=== PATIENT | female | born 1985 | race Caucasian/White ===

== ENCOUNTER 2017-09-21 11:14 | Inpatient (IN) | payer OTHER ==
[2017-09-21 11:47] VITALS: BMI 22.3
--- NOTE | 2017-09-21 15:38 | HP ---
COWS - Scale Resting Pulse: 1= [place] 81-100 Sweatin=Flushed/Facial Moisture Restless Observation: 1= Difficult to Sit Still Pupil Size: 0= Normal to Room Light Bone or Joint Aches: 2= Severe Diffuse Aches Runny Nose/ Eye Tearin= Nasal Congestion GI Upset > 30mins: 3= Vomiting/Diarrhea Tremor Observation: 1= Tremor [place], Not Seen Yawning Observation: 0= None Anxiety or Irritability: 4=Extreme Anxiety Goose Flesh Skin: 3=Piloerection COWS Score: 18 Admission ROS S - HPI Chief Complaint: "I need to get clean and straight. I was on Methadone for a while and then I stopped and I slipped up." Patient is here to Detox from Heroin. Allergies/Adverse Reactions: Allergies Allergy/AdvReac Type Severity Reaction Status Date / Time No Known Allergies Allergy Verified 09/21/17 12:33 History of Present Illness: Patient is a 31 YO female here to Detox from Heroin. This is patient's first Detox admission at [facility]. Patient had a Detox admission at [facility] in 2017. Patient was in [facility] ([facility], 2010 - 2015). Then patient continued to take Methadone (prescribed) as an analgesic after that. Patient stopped taking Methadone in 06/2017, then began to use Heroin in 08/2017. Exam Limitations: No Limitations - Ebola screening Have you traveled outside of the country in the last 21 days: No (N) Have you had contact with anyone from an Ebola affected area: No Have you been sick,other than usual withdrawal symptoms: No Do you have a fever: No - Review of Systems Constitutional: Chills, Diaphoresis, Fever, Loss of Appetite, Malaise, Night Sweats, Changes in sleep, Unintentional Wgt. Loss (Lost approx. 15 lbs. over last 1 month.) EENT: reports: Blurred Vision, Nose Congestion, Sinus Pressure Respiratory: reports: Cough Cardiac: reports: Palpitations, Chest Tightness (Patient reports this to be a chronic condition that has occurred intermittently for most of her life.) GI: reports: Diarrhea, Nausea, Poor Appetite, Vomiting : reports: No Symptoms Reported Musculoskeletal: reports: Back Pain, Joint Pain, Muscle Pain, Neck Pain, Joint Stiffness Integumentary: reports: No Symptoms Reported Neuro: reports: Headache, Numbness (Bilateral Feet and bilateral Hands.), Tingling (Bilateral Feet and bilateral Hands.), Tremors Endocrine: reports: No Symptoms Reported Hematology: reports: No Symptoms Reported Psychiatric: reports: Judgement Intact, Mood/Affect Appropiate, Orientated x3, Agitated, Anxious, Depressed (On meds.), other (Anxiety.) Other Systems: Reviewed and Negative Patient History - Patient Medical History Hx Anemia: No Hx Asthma: No Hx Chronic Obstructive Pulmonary Disease (COPD): No Hx Cancer: No Hx Cardiac Disorders: No Hx Congestive Heart Failure: No Hx Hypertension: No Hx Hypercholesterolemia: No Hx Pacemaker: No HX Cerebrovascular Accident: No Hx Seizures: No Hx Dementia: No Hx Diabetes: No Hx Gastrointestinal Disorders: No Hx Liver Disease: No Hx Genitourinary Disorders: No Hx Sexually Transmitted Disorders: Yes (HPV) Hx Renal Disease (ESRD): No Hx Thyroid Disease: No Hx Human Immunodeficiency Virus (HIV): No (Last Tested: 08/2017: NEGATIVE) Hx Hepatitis C: No (Negative History.) Hx Depression: Yes (and Anxiety; On meds.) Hx Suicide Attempt: No (PATIENT DENIES CURRENT SI / HI.) Hx Bipolar Disorder: No Hx Schizophrenia: No Other Medical History: Rheumatoid Arthritis, Diagnosed 2013. PTSD. - Patient Surgical History Past Surgical History: Yes Hx Neurologic Surgery: No Hx Cataract Extraction: No Hx Cardiac Surgery: No Hx Lung Surgery: No Hx Breast Surgery: No Hx Breast Biopsy: No Hx Abdominal Surgery: No Hx Appendectomy: No Hx Cholecystectomy: No Hx Genitourinary Surgery: No Hx Section: No Hx Orthopedic Surgery: Yes (rt foot implant (brace), 2016.) Hx Hysterectomy: No Other Surgical History: DENIES. Anesthesia Reaction: Yes (Had "Jaw lock" when used during Implant of IUD (2016).) - PPD History Previous Implant?: Yes Documented Results: Negative w/o proof Implanted On Prior R Admission?: No PPD to be Administered?: Yes - Reproductive History Patient is a Female of Child Bearing Age (11 -55 yrs old): Yes Last Menstrual Period: 09/21/17 Patient : No - Smoking Cessation Smoking history: Current every day smoker Have you smoked in the past 12 months: Yes Aproximately how many cigarettes per day: 20 Cigars Per Day: 0 Hx Chewing Tobacco Use: No Initiated information on smoking cessation: Yes 'Breaking Loose' booklet given: 09/21/17 (GIVEN TO PATIENT.) - Substance & Tx. History Hx Alcohol Use: Yes (In past, not currently.) Substance Use Type: Heroin Hx Substance Use Treatment: Yes (Detox admission at [facility] (08/2017).) - Substances Abused Heroin Route: Injection Frequency: Daily Amount used: 8 bags Age of first use: 23 Date of Last Use: 09/21/17 Family Disease History - Family Disease History Family Disease History: Other: Father (OCD, Schizophrenia.), Mother (Benign Head Tumor, removed.) Admission Physical Exam [facility] - Vital Signs Vital Signs: Vital Signs - 24 hr 09/21/17 11:45 Temperature 97.7 F Pulse Rate 98 H Respiratory 18 Rate Blood Pressure 150/89 - Physical General Appearance: Yes: Nourished, Appropriately Dressed, Mild Distress, Tremorous, Sweating, Anxious HEENTM: Yes: Hearing grossly Normal, Normocephalic, Normal Voice, [place], Pharynx Normal Respiratory: Yes: Chest Non-Tender, Lungs Clear, No Respiratory Distress, No Accessory Muscle Use Neck: Yes: No masses,lesions,Nodules, Supple, Trachea in good position Breast: Yes: Breast Exam Deferred Cardiology: Yes: Regular Rhythm, Regular Rate, S1, S2 Abdominal: Yes: Normal Bowel Sounds, Non Tender, Flat, Soft Genitourinary: Yes: Within Normal Limits Back: Yes: Decreased Range of Motion Musculoskeletal: Yes: Gait Steady, Back pain, Joint Stiffness, Muscle Pain Extremities: Yes: Normal Capillary Refill, Tremors Neurological: Yes: Fully Oriented, Alert, Normal Mood/Affect, Normal Response Integumentary: Yes: Normal Color, Dry, Warm, Track [place] (Noted on Bilarteral Forearms. Mild swelling noted at site near Left Cubital crease. No swelling, erythema, or unusual discharge noted at any other affected sites.) Lymphatic: Yes: Within Normal Limits - Diagnostic (1) Opioid dependence with withdrawal Current Visit: Yes Status: Acute (2) Nicotine dependence Current Visit: Yes Status: Chronic Qualifiers: Nicotine product type: cigarettes Substance use status: uncomplicated Qualified Code(s): F17.210 - Nicotine dependence, cigarettes, uncomplicated (3) Rheumatoid arthritis Current Visit: Yes Status: Chronic Qualifiers: Rheumatoid arthritis location: multiple sites Rheumatoid factor presence: unspecified presence Qualified Code(s): M06.9 - Rheumatoid arthritis, unspecified (4) Depression with anxiety Current Visit: Yes Status: Chronic (5) Status post right foot surgery Current Visit: Yes Status: Chronic (6) History of posttraumatic stress disorder (PTSD) Current Visit: Yes Status: Suspected Cleared for Admission [facility] - Detox or Rehab [facility] Level of Care: Medically Managed Detox Regimen/Protocol: Methadone [facility] Breath Alcohol Content Breath Alcohol Content: 0 Urine Pregancy Test - Result Urine Test Results: Negative- NO Line Present Urine Drug Screen - Results Drug Screen Negative: No Urine Drug Screen Results: OPI-Opiates, MET-Methamphetamine, MDMA-Ecstasy, MTD- Methadone, TCA-Tricyclic Antidepress, OXY-Oxycodone
[2017-09-21] MEDS ORDERED: MAG HYDROX/AL HYDROX/SIMETH 30 ML UNIT-DOSE CUP PO PRN (16:22)
[2017-09-21] MEDS ORDERED: MAGNESIUM HYDROX 2400MG/30ML ORAL SUSPENSION 30 ML CUP PO PRN (16:22)
[2017-09-21] MEDS ORDERED: MAGNESIUM CITRATE 300 ML BOTTLE PO PRN (16:22)
[2017-09-21] MEDS ORDERED: P-EPHED 60MG/TRIPROLIDI 2.5MG TABLET PO PRN (16:22)
[2017-09-21] MEDS ORDERED: LOPERAMIDE HCL 2 MG CAPSULE PO PRN (16:22)
[2017-09-21] MEDS ORDERED: guaiFENesin/D-METHORPHAN HB 10 ML UNIT-DOSE CUPS PO PRN (16:22)
[2017-09-21] MEDS ORDERED: MENTHOL/PHENOL 1 EACH UD MM PRN (16:22)
[2017-09-21] MEDS ORDERED: TRIMETHOBENZAMIDE HCL 200MG/2ML INJ IM PRN (16:32)
[2017-09-21] MEDS ORDERED: METHADONE HCL 10 MG TABLET (FOR DETOX USE ONLY) PO ONE ×2 (18:15→23:00)
[2017-09-21] MEDS: SULFAMETHOXAZOLE/TRIMETHOPRIM 800MG/160MG D.S. TABLET PO SCH (18:21)
[2017-09-21] MEDS: NICOTINE 21 MG/24 HOURS TOPICAL PATCH TD SCH (18:22)
[2017-09-21] MEDS: diazePAM 5 MG TABLET PO PRN ×2 (18:22→22:16)
[2017-09-21] MEDS: THIAMINE HCL 100 MG TABLET (FP) PO SCH (22:15)
[2017-09-21] MEDS: BACITRACIN 0.9 GM PACKET TP SCH (22:15)
[2017-09-21 22:24] LABS: URINE APPEARANCE TURBID; URINE BILIRUBIN NEGATIVE (NEGATIVE); URINE BLOOD NEGATIVE (NEGATIVE); URINE COLOR YELLOW; URINE GLUCOSE (UA) NEGATIVE (NEGATIVE); URINE KETONE TRACE (NEGATIVE); URINE NITRITE NEGATIVE (NEGATIVE); URINE UROBILINOGEN NEGATIVE mg/dL (0.2-1.0)
[2017-09-21 22:25] LABS: URINE LEUK ESTERASE 2+ (NEGATIVE); URINE PROTEIN 2+ (NEGATIVE)
[2017-09-21 22:53] LABS: EPI CELLS MANY /HPF (FEW); URINE MUCUS MANY
[2017-09-22] MEDS ORDERED: METHADONE HCL 10 MG TABLET (FOR DETOX USE ONLY) PO ONE (10:00)
[2017-09-22 10:30] LABS: HEMATOCRIT 43.6 % (32.4-45.2); HEMOGLOBIN 14.4 GM/dL (10.7-15.3); MCH 30.6 pg (25.7-33.7); MEAN CELL VOLUME 92.6 fl (80-96); MEAN PLT VOLUME 8.7 fl (7.5-11.1); PLATELET COUNT 409 K/MM3 (134-434); RBC 4.71 M/mm3 (3.60-5.2); RDW 15.8 % (11.6-15.6); WHITE BLOOD COUNT 10.9 K/mm3 (4.0-10.0)
[2017-09-22] MEDS: PRENATAL VITAMINS W/ FOLIC ACID TABLET (FP) PO SCH (10:30)
[2017-09-22] MEDS: SULFAMETHOXAZOLE/TRIMETHOPRIM 800MG/160MG D.S. TABLET PO SCH ×2 (10:30→17:42)
[2017-09-22] MEDS: BACITRACIN 0.9 GM PACKET TP SCH ×2 (10:30→22:20)
[2017-09-22] MEDS: NICOTINE 21 MG/24 HOURS TOPICAL PATCH TD SCH (10:30)
[2017-09-22] MEDS: diazePAM 5 MG TABLET PO PRN ×4 (10:31→22:47)
[2017-09-22 10:37] LABS: CHLORIDE 104 mmol/L (98-107); POTASSIUM 3.9 mmol/L (3.5-5.1); SODIUM 137 mmol/L (136-145)
[2017-09-22 10:43] LABS: ALK PHOS 78 U/L (45-117); ANION GAP 4 (8-16); BILIRUBIN,TOTAL 0.4 mg/dL (0.2-1.0); BLOOD UREA NITROGEN 8 mg/dL (7-18); CO2 29 mmol/L (21-32); CREATININE 0.6 mg/dL (0.55-1.02); GLUCOSE,RANDOM 83 mg/dL (74-106); SGOT/AST 10 U/L (15-37); SGPT/ALT 22 U/L (12-78); TOT PROT 8.1 g/dl (6.4-8.2)
[2017-09-22] MEDS: IBUPROFEN 600 MG TABLET (FP) PO PRN ×2 (12:33→21:33)
[2017-09-22] MEDS: CYCLOBENZAPRINE HCL 5 MG TABLET PO PRN ×2 (12:34→21:33)
--- NOTE | 2017-09-22 15:44 | PN ---
S COWS - Scale Resting Pulse: 1= [place] 81-100 Sweatin=Flushed/Facial Moisture Restless Observation: 3= Extraneous Movement Pupil Size: 1= Pupils >than Normal Bone or Joint Aches: 2= Severe Diffuse Aches Runny Nose/ Eye Tearin= Nasal Congestion GI Upset > 30mins: 1= Stomach Cramp Tremor Observation of Outstretched Hands: 2= Slight Tremor Visible Yawning Observation: 0= None Anxiety or Irritability: 2=Irritable/Anxious Goose Flesh Skin: 3=Piloerection COWS Score: 18 BHS Progress Note (SOAP) Subjective: goosebumps nausea diarrhea Objective: 09/22/17 15:41 ambulating on unit anxious Vital Signs Temperature 98.1 F 09/22/17 14:55 Pulse Rate 94 H 09/22/17 14:55 Respiratory Rate 20 09/22/17 14:55 Blood Pressure 121/80 09/22/17 14:55 O2 Sat by Pulse Oximetry (%) Laboratory Last Values WBC 10.9 K/mm3 (4.0-10.0) H 09/22/17 06:10 RBC 4.71 M/mm3 (3.60-5.2) 09/22/17 06:10 Hgb 14.4 GM/dL (10.7-15.3) 09/22/17 06:10 Hct 43.6 % (32.4-45.2) 09/22/17 06:10 MCV 92.6 fl (80-96) 09/22/17 06:10 MCH 30.6 pg (25.7-33.7) 09/22/17 06:10 MCHC 33.0 g/dl (32.0-36.0) 09/22/17 06:10 RDW 15.8 % (11.6-15.6) H 09/22/17 06:10 Plt Count 409 K/MM3 (134-434) 09/22/17 06:10 MPV 8.7 fl (7.5-11.1) 09/22/17 06:10 Sodium 137 mmol/L (136-145) 09/22/17 06:10 Potassium 3.9 mmol/L (3.5-5.1) 09/22/17 06:10 Chloride 104 mmol/L (98-107) 09/22/17 06:10 Carbon Dioxide 29 mmol/L (21-32) 09/22/17 06:10 Anion Gap 4 (8-16) L 09/22/17 06:10 BUN 8 mg/dL (7-18) 09/22/17 06:10 Creatinine 0.6 mg/dL (0.55-1.02) 09/22/17 06:10 Creat Clearance w eGFR > 60 (>60) 09/22/17 06:10 Random Glucose 83 mg/dL (74-106) 09/22/17 06:10 Calcium 9.0 mg/dL (8.5-10.1) 09/22/17 06:10 Total Bilirubin 0.4 mg/dL (0.2-1.0) 09/22/17 06:10 AST 10 U/L (15-37) L 09/22/17 06:10 ALT 22 U/L (12-78) 09/22/17 06:10 Alkaline Phosphatase 78 U/L (45-117) 09/22/17 06:10 Total Protein 8.1 g/dl (6.4-8.2) 09/22/17 06:10 Albumin 4.0 g/dl (3.4-5.0) 09/22/17 06:10 Urine Color Yellow 09/21/17 20:12 Urine Appearance Turbid 09/21/17 20:12 Urine pH 5.0 (5.0-8.0) 09/21/17 20:12 Ur Specific [place] 1.030 (1.001-1.035) 09/21/17 20:12 Urine Protein 2+ (NEGATIVE) H 09/21/17 20:12 Urine Glucose (UA) Negative (NEGATIVE) 09/21/17 20:12 Urine Ketones Trace (NEGATIVE) H 09/21/17 20:12 Urine Blood Negative (NEGATIVE) 09/21/17 20:12 Urine Nitrite Negative (NEGATIVE) 09/21/17 20:12 Urine Bilirubin Negative (NEGATIVE) 09/21/17 20:12 Urine Urobilinogen Negative mg/dL (0.2-1.0) 09/21/17 20:12 Ur Leukocyte Esterase 2+ (NEGATIVE) H 09/21/17 20:12 Urine WBC (Auto) 62 /hpf (3-5) 09/21/17 20:12 Urine RBC (Auto) None /hpf (0-3) 09/21/17 20:12 Ur Epithelial Cells Many /HPF (FEW) 09/21/17 20:12 Urine Mucus Many 09/21/17 20:12 RPR Titer Nonreactive (NONREACTIVE) 09/22/17 06:10 labs noted Assessment: 09/22/17 15:43 withdrawal sx Plan: continue detox increase hydration
--- NOTE | 2017-09-22 15:58 | EKG ---
Test Reason : Blood Pressure : / mmHG Vent. Rate : 066 BPM Atrial Rate : 066 BPM P-R Int : 146 ms QRS Dur : 072 ms QT Int : 402 ms P-R-T Axes : 049 057 041 degrees QTc Int : 421 ms NORMAL SINUS RHYTHM NORMAL ECG WHEN COMPARED WITH ECG OF 21-SEP-2017 17:26, T WAVE INVERSION NO LONGER EVIDENT IN ANTERIOR LEADS Confirmed by HENRY DAVID, ROYER ([id number]) on 09/22/2017 3:58:20 PM Referred By: Confirmed By:ROYER FIGUEROA MD
--- NOTE | 2017-09-22 15:59 | EKG ---
Test Reason : Blood Pressure : / mmHG Vent. Rate : 083 BPM Atrial Rate : 083 BPM P-R Int : 148 ms QRS Dur : 080 ms QT Int : 374 ms P-R-T Axes : 052 067 039 degrees QTc Int : 439 ms NORMAL SINUS RHYTHM POSSIBLE RIGHT VENTRICULAR HYPERTROPHY NONSPECIFIC T WAVE ABNORMALITY ABNORMAL ECG NO PREVIOUS ECGS AVAILABLE Confirmed by ROYER FIGUEROA MD ([id number]) on 09/22/2017 3:58:55 PM Referred By: Confirmed By:ROYER FIGUEROA MD
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
[2017-09-22] MEDS: ZOLPIDEM TARTRATE 5 MG TABLET PO PRN (22:20)
[2017-09-22] MEDS: THIAMINE HCL 100 MG TABLET (FP) PO SCH (22:21)
[2017-09-22] MEDS: NICOTINE POLACRILEX 2 MG GUM BC PRN (22:22)
[2017-09-23] MEDS: diazePAM 5 MG TABLET PO PRN ×4 (02:42→22:21)
[2017-09-23] MEDS ORDERED: METHADONE HCL 5 MG TABLET (FOR DETOX USE ONLY) PO ONE (10:00)
[2017-09-23] MEDS: SULFAMETHOXAZOLE/TRIMETHOPRIM 800MG/160MG D.S. TABLET PO SCH ×2 (10:21→17:18)
[2017-09-23] MEDS: SERTRALINE HCL 50 MG TABLET (FP) PO SCH (10:21)
[2017-09-23] MEDS: PRENATAL VITAMINS W/ FOLIC ACID TABLET (FP) PO SCH (10:21)
[2017-09-23] MEDS: BACITRACIN 0.9 GM PACKET TP SCH ×2 (10:22→22:19)
[2017-09-23] MEDS: NICOTINE 21 MG/24 HOURS TOPICAL PATCH TD SCH (10:22)
[2017-09-23] MEDS: IBUPROFEN 600 MG TABLET (FP) PO PRN ×2 (12:06→22:20)
[2017-09-23] MEDS: CYCLOBENZAPRINE HCL 5 MG TABLET PO PRN ×2 (12:07→23:15)
[2017-09-23] MEDS: NICOTINE POLACRILEX 2 MG GUM BC PRN ×3 (12:55→22:21)
--- NOTE | 2017-09-23 15:13 | PN ---
[facility] COWS - Scale Resting Pulse: 0= [place] 80 or Below Sweatin= Chills/Flushing Restless Observation: 1= Difficult to Sit Still Pupil Size: 1= Pupils >than Normal Bone or Joint Aches: 1= Mild Discomfort Runny Nose/ Eye Tearin= Runny Nose/Eyes GI Upset > 30mins: 2= Nausea/Diarrhea Tremor Observation of Outstretched Hands: 2= Slight Tremor Visible Yawning Observation: 2= >3x During Session Anxiety or Irritability: 2=Irritable/Anxious Goose Flesh Skin: 0=Smooth Skin COWS Score: 14 BHS Progress Note (SOAP) Subjective: sweat joint ache GI upset anxiety chill Objective: 09/23/17 15:12 Vital Signs Temperature 98.2 F 09/23/17 14:22 Pulse Rate 87 09/23/17 14:22 Respiratory Rate 16 09/23/17 14:22 Blood Pressure 102/79 09/23/17 14:22 O2 Sat by Pulse Oximetry (%) Laboratory Last Values WBC 10.9 K/mm3 (4.0-10.0) H 09/22/17 06:10 RBC 4.71 M/mm3 (3.60-5.2) 09/22/17 06:10 Hgb 14.4 GM/dL (10.7-15.3) 09/22/17 06:10 Hct 43.6 % (32.4-45.2) 09/22/17 06:10 MCV 92.6 fl (80-96) 09/22/17 06:10 MCH 30.6 pg (25.7-33.7) 09/22/17 06:10 MCHC 33.0 g/dl (32.0-36.0) 09/22/17 06:10 RDW 15.8 % (11.6-15.6) H 09/22/17 06:10 Plt Count 409 K/MM3 (134-434) 09/22/17 06:10 MPV 8.7 fl (7.5-11.1) 09/22/17 06:10 Sodium 137 mmol/L (136-145) 09/22/17 06:10 Potassium 3.9 mmol/L (3.5-5.1) 09/22/17 06:10 Chloride 104 mmol/L (98-107) 09/22/17 06:10 Carbon Dioxide 29 mmol/L (21-32) 09/22/17 06:10 Anion Gap 4 (8-16) L 09/22/17 06:10 BUN 8 mg/dL (7-18) 09/22/17 06:10 Creatinine 0.6 mg/dL (0.55-1.02) 09/22/17 06:10 Creat Clearance w eGFR > 60 (>60) 09/22/17 06:10 Random Glucose 83 mg/dL (74-106) 09/22/17 06:10 Calcium 9.0 mg/dL (8.5-10.1) 09/22/17 06:10 Total Bilirubin 0.4 mg/dL (0.2-1.0) 09/22/17 06:10 AST 10 U/L (15-37) L 09/22/17 06:10 ALT 22 U/L (12-78) 09/22/17 06:10 Alkaline Phosphatase 78 U/L (45-117) 09/22/17 06:10 Total Protein 8.1 g/dl (6.4-8.2) 09/22/17 06:10 Albumin 4.0 g/dl (3.4-5.0) 09/22/17 06:10 Urine Color Yellow 09/21/17 20:12 Urine Appearance Turbid 09/21/17 20:12 Urine pH 5.0 (5.0-8.0) 09/21/17 20:12 Ur Specific [place] 1.030 (1.001-1.035) 09/21/17 20:12 Urine Protein 2+ (NEGATIVE) H 09/21/17 20:12 Urine Glucose (UA) Negative (NEGATIVE) 09/21/17 20:12 Urine Ketones Trace (NEGATIVE) H 09/21/17 20:12 Urine Blood Negative (NEGATIVE) 09/21/17 20:12 Urine Nitrite Negative (NEGATIVE) 09/21/17 20:12 Urine Bilirubin Negative (NEGATIVE) 09/21/17 20:12 Urine Urobilinogen Negative mg/dL (0.2-1.0) 09/21/17 20:12 Ur Leukocyte Esterase 2+ (NEGATIVE) H 09/21/17 20:12 Urine WBC (Auto) 62 /hpf (3-5) 09/21/17 20:12 Urine RBC (Auto) None /hpf (0-3) 09/21/17 20:12 Ur Epithelial Cells Many /HPF (FEW) 09/21/17 20:12 Urine Mucus Many 09/21/17 20:12 RPR Titer Nonreactive (NONREACTIVE) 09/22/17 06:10 Hepatitis C Antibody 0.2 s/co ratio (0.0-0.9) 09/22/17 08:30 HIV 1&2 Antibody Screen Negative 09/21/17 12:52 HIV P24 Antigen Negative 09/21/17 12:52 lab noted Assessment: 09/23/17 15:13 withdrawal sx Plan: continue detox
[2017-09-23] MEDS ORDERED: ONDANSETRON *ODT* 4 MG TABLET SL ONE (15:30)
[2017-09-23] MEDS: ZOLPIDEM TARTRATE 5 MG TABLET PO PRN (22:20)
[2017-09-23] MEDS: THIAMINE HCL 100 MG TABLET (FP) PO SCH (22:21)
--- NOTE | 2017-09-24 09:39 | PN ---
S Progress Note (SOAP) Subjective: joint ache nausea tremor sweat anxiety irritable Objective: 09/24/17 09:36 Vital Signs Temperature 98.1 F 09/24/17 06:29 Pulse Rate 73 09/24/17 06:29 Respiratory Rate 18 09/24/17 06:29 Blood Pressure 105/63 09/24/17 06:29 O2 Sat by Pulse Oximetry (%) Laboratory Last Values WBC 10.9 K/mm3 (4.0-10.0) H 09/22/17 06:10 RBC 4.71 M/mm3 (3.60-5.2) 09/22/17 06:10 Hgb 14.4 GM/dL (10.7-15.3) 09/22/17 06:10 Hct 43.6 % (32.4-45.2) 09/22/17 06:10 MCV 92.6 fl (80-96) 09/22/17 06:10 MCH 30.6 pg (25.7-33.7) 09/22/17 06:10 MCHC 33.0 g/dl (32.0-36.0) 09/22/17 06:10 RDW 15.8 % (11.6-15.6) H 09/22/17 06:10 Plt Count 409 K/MM3 (134-434) 09/22/17 06:10 MPV 8.7 fl (7.5-11.1) 09/22/17 06:10 Sodium 137 mmol/L (136-145) 09/22/17 06:10 Potassium 3.9 mmol/L (3.5-5.1) 09/22/17 06:10 Chloride 104 mmol/L (98-107) 09/22/17 06:10 Carbon Dioxide 29 mmol/L (21-32) 09/22/17 06:10 Anion Gap 4 (8-16) L 09/22/17 06:10 BUN 8 mg/dL (7-18) 09/22/17 06:10 Creatinine 0.6 mg/dL (0.55-1.02) 09/22/17 06:10 Creat Clearance w eGFR > 60 (>60) 09/22/17 06:10 Random Glucose 83 mg/dL (74-106) 09/22/17 06:10 Calcium 9.0 mg/dL (8.5-10.1) 09/22/17 06:10 Total Bilirubin 0.4 mg/dL (0.2-1.0) 09/22/17 06:10 AST 10 U/L (15-37) L 09/22/17 06:10 ALT 22 U/L (12-78) 09/22/17 06:10 Alkaline Phosphatase 78 U/L (45-117) 09/22/17 06:10 Total Protein 8.1 g/dl (6.4-8.2) 09/22/17 06:10 Albumin 4.0 g/dl (3.4-5.0) 09/22/17 06:10 Urine Color Yellow 09/21/17 20:12 Urine Appearance Turbid 09/21/17 20:12 Urine pH 5.0 (5.0-8.0) 09/21/17 20:12 Ur Specific [place] 1.030 (1.001-1.035) 09/21/17 20:12 Urine Protein 2+ (NEGATIVE) H 09/21/17 20:12 Urine Glucose (UA) Negative (NEGATIVE) 09/21/17 20:12 Urine Ketones Trace (NEGATIVE) H 09/21/17 20:12 Urine Blood Negative (NEGATIVE) 09/21/17 20:12 Urine Nitrite Negative (NEGATIVE) 09/21/17 20:12 Urine Bilirubin Negative (NEGATIVE) 09/21/17 20:12 Urine Urobilinogen Negative mg/dL (0.2-1.0) 09/21/17 20:12 Ur Leukocyte Esterase 2+ (NEGATIVE) H 09/21/17 20:12 Urine WBC (Auto) 62 /hpf (3-5) 09/21/17 20:12 Urine RBC (Auto) None /hpf (0-3) 09/21/17 20:12 Ur Epithelial Cells Many /HPF (FEW) 09/21/17 20:12 Urine Mucus Many 09/21/17 20:12 RPR Titer Nonreactive (NONREACTIVE) 09/22/17 06:10 Hepatitis C Antibody 0.2 s/co ratio (0.0-0.9) 09/22/17 08:30 HIV 1&2 Antibody Screen Negative 09/21/17 12:52 HIV P24 Antigen Negative 09/21/17 12:52 lab noted Assessment: 09/24/17 09:38 withdrawal sx Plan: continue detox
[2017-09-24] MEDS ORDERED: METHADONE HCL 5 MG TABLET (FOR DETOX USE ONLY) PO ONE (10:00)
[2017-09-24] MEDS ORDERED: ONDANSETRON *ODT* 4 MG TABLET SL ONE (10:00)
[2017-09-24] MEDS: diazePAM 5 MG TABLET PO PRN ×2 (10:22→14:35)
[2017-09-24] MEDS: PRENATAL VITAMINS W/ FOLIC ACID TABLET (FP) PO SCH (10:22)
[2017-09-24] MEDS: SERTRALINE HCL 50 MG TABLET (FP) PO SCH (10:22)
[2017-09-24] MEDS: BACITRACIN 0.9 GM PACKET TP SCH ×2 (10:22→22:22)
[2017-09-24] MEDS: SULFAMETHOXAZOLE/TRIMETHOPRIM 800MG/160MG D.S. TABLET PO SCH ×2 (10:22→17:42)
[2017-09-24] MEDS: NICOTINE 21 MG/24 HOURS TOPICAL PATCH TD SCH (10:23)
[2017-09-24] MEDS: IBUPROFEN 600 MG TABLET (FP) PO PRN ×2 (12:12→22:24)
[2017-09-24] MEDS: CYCLOBENZAPRINE HCL 5 MG TABLET PO PRN ×2 (12:30→22:22)
[2017-09-24 14:22] LABS: URINE APPEARANCE CLEAR; URINE BILIRUBIN NEGATIVE (NEGATIVE); URINE BLOOD NEGATIVE (NEGATIVE); URINE COLOR STRAW; URINE GLUCOSE (UA) NEGATIVE (NEGATIVE); URINE KETONE NEGATIVE (NEGATIVE); URINE LEUK ESTERASE TRACE (NEGATIVE); URINE NITRITE NEGATIVE (NEGATIVE); URINE PROTEIN NEGATIVE (NEGATIVE); URINE UROBILINOGEN NEGATIVE mg/dL (0.2-1.0)
[2017-09-24 14:52] LABS: EPI CELLS RARE /HPF (FEW); URINE BACTERIA RARE /hpf (NONE SEEN)
--- NOTE | 2017-09-24 21:58 | PN ---
[facility] Progress Note Note: Patient evaluated at bedside. Patient reports hx of panic attacks, PTSD and anxiety. Patient very anxious. Reports was seen by psychiatrist medications were reconcile. One time dose of valium 5mg .
[2017-09-24] MEDS ORDERED: diazePAM 5 MG TABLET PO ONE (22:00)
[2017-09-24] MEDS: THIAMINE HCL 100 MG TABLET (FP) PO SCH (22:22)
[2017-09-24] MEDS: ZOLPIDEM TARTRATE 5 MG TABLET PO PRN (22:22)
[2017-09-24] MEDS: NICOTINE POLACRILEX 2 MG GUM BC PRN (22:33)
[2017-09-25] MEDS ORDERED: ONDANSETRON *ODT* 4 MG TABLET SL ONE (09:43)
--- NOTE | 2017-09-25 09:46 | PN ---
S Progress Note (SOAP) Subjective: alert oriented x 3 no sweat no tremor denies joint ache calm mild nausea after breakfast Objective: 09/25/17 09:49 Vital Signs Temperature 97.9 F 09/25/17 06:27 Pulse Rate 65 09/25/17 06:27 Respiratory Rate 18 09/25/17 06:27 Blood Pressure 96/48 09/25/17 06:27 O2 Sat by Pulse Oximetry (%) Laboratory Last Values WBC 10.9 K/mm3 (4.0-10.0) H 09/22/17 06:10 RBC 4.71 M/mm3 (3.60-5.2) 09/22/17 06:10 Hgb 14.4 GM/dL (10.7-15.3) 09/22/17 06:10 Hct 43.6 % (32.4-45.2) 09/22/17 06:10 MCV 92.6 fl (80-96) 09/22/17 06:10 MCH 30.6 pg (25.7-33.7) 09/22/17 06:10 MCHC 33.0 g/dl (32.0-36.0) 09/22/17 06:10 RDW 15.8 % (11.6-15.6) H 09/22/17 06:10 Plt Count 409 K/MM3 (134-434) 09/22/17 06:10 MPV 8.7 fl (7.5-11.1) 09/22/17 06:10 Sodium 137 mmol/L (136-145) 09/22/17 06:10 Potassium 3.9 mmol/L (3.5-5.1) 09/22/17 06:10 Chloride 104 mmol/L (98-107) 09/22/17 06:10 Carbon Dioxide 29 mmol/L (21-32) 09/22/17 06:10 Anion Gap 4 (8-16) L 09/22/17 06:10 BUN 8 mg/dL (7-18) 09/22/17 06:10 Creatinine 0.6 mg/dL (0.55-1.02) 09/22/17 06:10 Creat Clearance w eGFR > 60 (>60) 09/22/17 06:10 Random Glucose 83 mg/dL (74-106) 09/22/17 06:10 Calcium 9.0 mg/dL (8.5-10.1) 09/22/17 06:10 Total Bilirubin 0.4 mg/dL (0.2-1.0) 09/22/17 06:10 AST 10 U/L (15-37) L 09/22/17 06:10 ALT 22 U/L (12-78) 09/22/17 06:10 Alkaline Phosphatase 78 U/L (45-117) 09/22/17 06:10 Total Protein 8.1 g/dl (6.4-8.2) 09/22/17 06:10 Albumin 4.0 g/dl (3.4-5.0) 09/22/17 06:10 Urine Color Straw 09/24/17 12:45 Urine Appearance Clear 09/24/17 12:45 Urine pH 7.0 (5.0-8.0) D 09/24/17 12:45 Ur Specific [place] 1.008 (1.001-1.035) 09/24/17 12:45 Urine Protein Negative (NEGATIVE) 09/24/17 12:45 Urine Glucose (UA) Negative (NEGATIVE) 09/24/17 12:45 Urine Ketones Negative (NEGATIVE) 09/24/17 12:45 Urine Blood Negative (NEGATIVE) 09/24/17 12:45 Urine Nitrite Negative (NEGATIVE) 09/24/17 12:45 Urine Bilirubin Negative (NEGATIVE) 09/24/17 12:45 Urine Urobilinogen Negative mg/dL (0.2-1.0) 09/24/17 12:45 Ur Leukocyte Esterase Trace (NEGATIVE) 09/24/17 12:45 Urine WBC (Auto) 1 /hpf (3-5) 09/24/17 12:45 Urine RBC (Auto) 1 /hpf (0-3) 09/24/17 12:45 Ur Epithelial Cells Rare /HPF (FEW) 09/24/17 12:45 Urine Bacteria Rare /hpf (NONE SEEN) 09/24/17 12:45 Urine Mucus Many 09/21/17 20:12 RPR Titer Nonreactive (NONREACTIVE) 09/22/17 06:10 Hepatitis C Antibody 0.2 s/co ratio (0.0-0.9) 09/22/17 08:30 HIV 1&2 Antibody Screen Negative 09/21/17 12:52 HIV P24 Antigen Negative 09/21/17 12:52 lab noted Assessment: 09/25/17 09:49 mild withdrawal rule out GI discomfort related to antibiotic Plan: medially supervised detox discontinue Motrin begin zantac 150 mg bid patient denies symptoms of uti able to tolerate food and fluid well health teaching on oral fluid and personal hygiene and risks of uti complications
[2017-09-25] MEDS ORDERED: METHADONE HCL 10 MG TABLET (FOR DETOX USE ONLY) PO ONE (10:00)
[2017-09-25] MEDS: BACITRACIN 0.9 GM PACKET TP SCH ×2 (10:49→22:26)
[2017-09-25] MEDS: CYCLOBENZAPRINE HCL 5 MG TABLET PO PRN ×3 (10:50→22:26)
[2017-09-25] MEDS: PRENATAL VITAMINS W/ FOLIC ACID TABLET (FP) PO SCH (10:50)
[2017-09-25] MEDS: SERTRALINE HCL 50 MG TABLET (FP) PO SCH (10:50)
[2017-09-25] MEDS: RANITIDINE HCL 150 MG TABLET (FP) PO SCH ×2 (10:50→22:27)
[2017-09-25] MEDS: SULFAMETHOXAZOLE/TRIMETHOPRIM 800MG/160MG D.S. TABLET PO SCH ×2 (10:50→16:47)
[2017-09-25] MEDS: NICOTINE 21 MG/24 HOURS TOPICAL PATCH TD SCH (10:51)
[2017-09-25] MEDS ORDERED: hydrOXYzine PAMOATE 50 MG CAPSULE (FP) PO ONE (15:00)
[2017-09-25] MEDS ORDERED: diphenhydrAMINE HCL 25 MG CAPSULE (FP) PO ONE (16:42)
[2017-09-25] MEDS: diphenhydrAMINE HCL 25 MG CAPSULE (FP) PO PRN ×3 (16:47→22:26)
[2017-09-25] MEDS: ACETAMINOPHEN 325 MG TABLET (FP) PO PRN (16:51)
[2017-09-25] MEDS ORDERED: diphenhydrAMINE HCL 50 MG CAPSULE PO ONE (17:00)
--- NOTE | 2017-09-25 17:41 | PN ---
Psychiatric Progress Note Vital Signs: Vital Signs Period Temp Pulse Resp BP Sys/Noriega Pulse Ox Last 24 Hr 97.9 F-98.1 F 65-72 16-18 96-108/48-63 Date of Session: 09/25/17 Chief Complaint:: " I need my klonopin." HPI: Pt. admitted to for opiate dependence. ROS: Unremarkable. Current Medications: Active Medications Generic Name Dose Route Start Last Admin Trade Name Freq PRN Reason Stop Dose Admin Acetaminophen 650 mg 09/21/17 16:22 09/25/17 16:51 Tylenol - PO 650 mg Q4H PRN Administration FEVER Al Hydroxide/Mg Hydroxide 30 ml 09/21/17 16:22 Mylanta Oral Suspension - PO Q6H PRN DYSPEPSIA Bacitracin 0.9 gm 09/21/17 22:00 09/25/17 10:49 Bacitracin - TP 0.9 gm BID JOSEPH Administration Cyclobenzaprine HCl 5 mg 09/22/17 11:25 09/25/17 16:51 Cyclobenzaprine Hcl PO 5 mg TID PRN Administration PAIN Diphenhydramine HCl 50 mg 09/21/17 16:31 Benadryl - PO HS PRN INSOMNIA Eucalyptus/Menthol/Phenol/Sorbitol 1 each 09/21/17 16:22 Cepastat Lozenge - MM Q4H PRN SORE THROAT Guaifenesin 10 ml 09/21/17 16:22 Robitussin Dm - PO Q6H PRN COUGH Loperamide HCl 4 mg 09/21/17 16:22 Imodium - PO Q6H PRN DIARRHEA Magnesium Citrate 300 ml 09/21/17 16:22 Citroma - PO Q48H PRN CONSTIPATION Magnesium Hydroxide 30 ml 09/21/17 16:22 Milk Of Magnesia - PO DAILY PRN CONSTIPATION Methadone HCl 5 mg 09/26/17 06:00 Dolophine - PO 09/26/17 06:01 ONCE@0600 ONE Nicotine 21 mg 09/21/17 16:30 09/25/17 10:51 Nicoderm Patch - TD 21 mg DAILY JOSEPH Administration Nicotine Polacrilex 2 mg 09/21/17 16:22 09/24/17 22:33 Nicorette Gum - BC 2 mg Q2H PRN Administration NICOTINE REPLACEMENT RX Multivit/Folic Acid/Iron 1 tab 09/22/17 10:00 09/25/17 10:50 Vitamins (Sjr) - PO 1 tab DAILY JOSEPH Administration Pseudoephedrine/Triprolidine 1 combo 09/21/17 16:22 Actifed - PO TID PRN NASAL CONGESTION Ranitidine HCl 150 mg 09/25/17 10:00 09/25/17 10:50 Zantac - PO 150 mg BID JOSEPH Administration Sertraline HCl 150 mg 09/23/17 10:00 09/25/17 10:50 Zoloft - PO 150 mg DAILY JOSEPH Administration Thiamine HCl 100 mg 09/21/17 22:00 09/24/17 22:22 Vitamin B1 - PO 100 mg HS JOSEPH Administration Trimethobenzamide HCl 200 mg 09/21/17 16:32 09/25/17 14:03 Tigan Injection - IM 200 mg Q8H PRN Administration NAUSEA Trimethoprim/Sulfamethoxazole 1 each 09/21/17 18:15 09/25/17 16:47 Bactrim Ds - PO 10/01/17 18:14 1 each BID@1000,1700 JOSEPH Administration Zolpidem Tartrate 10 mg 09/22/17 22:00 09/24/17 22:22 Ambien - PO 10 mg HS PRN Administration INSOMNIA Medication(s) Change(s): Yes. Pt. given one time dose of benadryl 50mg Current Side Effect: No Lab tests ordered: No Lab tests reviewed: Yes Provider note:: [facility] Counselor met with patient concerning psychiatric reconsultation. Pt. reports needing klonopin or valium to assist with her anxiety. Pt. reports a history of anxiety and is prescribed klonopin. Psychoeducation provided and patient's feelings acknowleged. Pt. made aware that additional benzodiazepines can not be ordered in a detox setting. Psychopharmacotherapy provided. One time dose of benadryl 50mg ordered for anxiety. Pt. receptive and satisifed with feedback. Will continue to monitor patient. Total face to face time:: 25 Mental Status Exam - Mental Status Exam Alert and Oriented to: Time, Place, Person Cognitive Function: Good Mood: Anxious Affect: Mood Congruent Patient Behavior: Appropriate, Cooperative Speech Pattern: Appropriate Voice Loudness: Moderately Soft/Quiet Thought Process: Goal Oriented Thought Disorder: Not Present Hallucinations: Denies Suicidal Ideation: Denies Homicidal Ideation: Denies Insight/Judgement: Poor Sleep: Fair Appetite: Good Muscle strength/Tone: Normal Gait/Station: Normal Psychiatric Treatment Plan - Problem List (1) Anxiety disorder Current Visit: Yes (2) Insomnia Current Visit: Yes (3) Nicotine dependence Current Visit: Yes Qualifiers: Nicotine product type: cigarettes Substance use status: uncomplicated Qualified Code(s): F17.210 - Nicotine dependence, cigarettes, uncomplicated (4) Opioid dependence with withdrawal Current Visit: Yes (5) Substance induced mood disorder Current Visit: Yes (6) History of posttraumatic stress disorder (PTSD) Current Visit: Yes Comment: Self-report.On medications.Asymptomatic in this examination.Currently in OPD care.
[2017-09-25] MEDS: ZOLPIDEM TARTRATE 5 MG TABLET PO PRN (22:26)
[2017-09-25] MEDS: THIAMINE HCL 100 MG TABLET (FP) PO SCH (22:27)
[2017-09-26] MEDS: CYCLOBENZAPRINE HCL 5 MG TABLET PO PRN ×3 (05:20→22:14)
[2017-09-26] MEDS ORDERED: METHADONE HCL 5 MG TABLET (FOR DETOX USE ONLY) PO ONE (06:00)
[2017-09-26] MEDS ORDERED: HALOPERIDOL 2 MG TABLET PO STA ×3 (10:59→11:26)
--- NOTE | 2017-09-26 10:59 | PN ---
Psychiatric Progress Note Vital Signs: Vital Signs Period Temp Pulse Resp BP Sys/Noriega Pulse Ox Last 24 Hr 96.4 F-98.2 F 67-73 16-20 95-112/52-63 Date of Session: 09/26/17 Chief Complaint:: Anxiety, Agitation HPI: Patient reports anxiety and agitation, reports benzodiazepins withdrawal, asking for Valium, short supportive psychotherapy provided. Zoloft 200mg poqd. Haldol 2mg po stat. Benadril 50mg po stat. Haldol 1mg po prn q4 FOR AGITATION Current Medications: Active Medications Generic Name Dose Route Start Last Admin Trade Name Freq PRN Reason Stop Dose Admin Acetaminophen 650 mg 09/21/17 16:22 09/25/17 16:51 Tylenol - PO 650 mg Q4H PRN Administration FEVER Al Hydroxide/Mg Hydroxide 30 ml 09/21/17 16:22 Mylanta Oral Suspension - PO Q6H PRN DYSPEPSIA Bacitracin 0.9 gm 09/21/17 22:00 09/25/17 22:26 Bacitracin - TP 0.9 gm BID JOSEPH Administration Cyclobenzaprine HCl 5 mg 09/22/17 11:25 09/26/17 05:20 Cyclobenzaprine Hcl PO 5 mg TID PRN Administration PAIN Diphenhydramine HCl 50 mg 09/21/17 16:31 09/25/17 22:26 Benadryl - PO 50 mg HS PRN Administration INSOMNIA Eucalyptus/Menthol/Phenol/Sorbitol 1 each 09/21/17 16:22 Cepastat Lozenge - MM Q4H PRN SORE THROAT Guaifenesin 10 ml 09/21/17 16:22 Robitussin Dm - PO Q6H PRN COUGH Loperamide HCl 4 mg 09/21/17 16:22 Imodium - PO Q6H PRN DIARRHEA Magnesium Citrate 300 ml 09/21/17 16:22 Citroma - PO Q48H PRN CONSTIPATION Magnesium Hydroxide 30 ml 09/21/17 16:22 Milk Of Magnesia - PO DAILY PRN CONSTIPATION Nicotine 21 mg 09/21/17 16:30 09/25/17 10:51 Nicoderm Patch - TD 21 mg DAILY JOSEPH Administration Nicotine Polacrilex 2 mg 09/21/17 16:22 09/24/17 22:33 Nicorette Gum - BC 2 mg Q2H PRN Administration NICOTINE REPLACEMENT RX Multivit/Folic Acid/Iron 1 tab 09/22/17 10:00 09/25/17 10:50 Vitamins (Sjr) - PO 1 tab DAILY JOSEPH Administration Pseudoephedrine/Triprolidine 1 combo 09/21/17 16:22 Actifed - PO TID PRN NASAL CONGESTION Ranitidine HCl 150 mg 09/25/17 10:00 09/25/17 22:27 Zantac - PO 150 mg BID JOSEPH Administration Sertraline HCl 150 mg 09/23/17 10:00 09/25/17 10:50 Zoloft - PO 150 mg DAILY JOSEPH Administration Thiamine HCl 100 mg 09/21/17 22:00 09/25/17 22:27 Vitamin B1 - PO 100 mg HS JOSEPH Administration Trimethobenzamide HCl 200 mg 09/21/17 16:32 09/25/17 14:03 Tigan Injection - IM 200 mg Q8H PRN Administration NAUSEA Trimethoprim/Sulfamethoxazole 1 each 09/21/17 18:15 09/25/17 16:47 Bactrim Ds - PO 10/01/17 18:14 1 each BID@1000,1700 JOSEPH Administration Zolpidem Tartrate 10 mg 09/22/17 22:00 09/25/17 22:26 Ambien - PO 10 mg HS PRN Administration INSOMNIA Mental Status Exam - Mental Status Exam Alert and Oriented to: Person Cognitive Function: Fair Patient Appearance: Unkempt Mood: Anxious, Irritable Affect: Mood Congruent Patient Behavior: Cooperative Speech Pattern: Appropriate Voice Loudness: Mildly Soft/Quiet Thought Process: Goal Oriented Thought Disorder: Being Controlled Hallucinations: Denies Suicidal Ideation: Denies Homicidal Ideation: Denies Insight/Judgement: Fair Sleep: Difficulty falling asleep Appetite: Weight loss Muscle strength/Tone: Mild Hypertonicity Gait/Station: Normal Additional Comments: Zoloft 200mg poqd. Haldol 2mg po stat. Benadril 50mg po stat. Haldol 1mg po prn q4 FOR AGITATION Psychiatric Treatment Plan - Problem List (1) Drug-induced mood disorder Current Visit: Yes (2) Nicotine dependence Current Visit: Yes Qualifiers: Nicotine product type: cigarettes Substance use status: uncomplicated Qualified Code(s): F17.210 - Nicotine dependence, cigarettes, uncomplicated (3) Opioid dependence with withdrawal Current Visit: Yes (4) Substance induced mood disorder Current Visit: Yes (5) Anxiety disorder Current Visit: Yes (6) Depression with anxiety Current Visit: Yes (7) History of posttraumatic stress disorder (PTSD) Current Visit: Yes Comment: Self-report.On medications.Asymptomatic in this examination.Currently in OPD care. Initial treatment plan: Zoloft 200mg poqd. Haldol 2mg po stat. Benadril 50mg po stat. Haldol 1mg po prn q4 FOR AGITATION
[2017-09-26] MEDS ORDERED: HALOPERIDOL 1 MG TABLET (FP) PO PRN (11:00)
[2017-09-26] MEDS: SULFAMETHOXAZOLE/TRIMETHOPRIM 800MG/160MG D.S. TABLET PO SCH ×3 (11:07→20:43)
[2017-09-26] MEDS: NICOTINE 21 MG/24 HOURS TOPICAL PATCH TD SCH (11:07)
[2017-09-26] MEDS: RANITIDINE HCL 150 MG TABLET (FP) PO SCH ×2 (11:07→22:14)
[2017-09-26] MEDS: SERTRALINE HCL 50 MG TABLET (FP) PO SCH ×2 (11:07→11:42)
[2017-09-26] MEDS: PRENATAL VITAMINS W/ FOLIC ACID TABLET (FP) PO SCH (11:07)
[2017-09-26] MEDS: BACITRACIN 0.9 GM PACKET TP SCH ×2 (11:09→22:14)
[2017-09-26] MEDS ORDERED: diphenhydrAMINE HCL 50 MG CAPSULE PO STA (11:25)
[2017-09-26] MEDS ORDERED: diphenhydrAMINE HCL 25 MG CAPSULE (FP) PO ONE (11:35)
--- NOTE | 2017-09-26 13:19 | PN ---
[facility] Progress Note (SOAP) Subjective: nausea ANXIETY SWEAT Objective: 09/26/17 13:17 Vital Signs Temperature 97.5 F L 09/26/17 10:31 Pulse Rate 68 09/26/17 10:31 Respiratory Rate 16 09/26/17 10:31 Blood Pressure 98/52 09/26/17 10:31 O2 Sat by Pulse Oximetry (%) Laboratory Last Values WBC 10.9 K/mm3 (4.0-10.0) H 09/22/17 06:10 RBC 4.71 M/mm3 (3.60-5.2) 09/22/17 06:10 Hgb 14.4 GM/dL (10.7-15.3) 09/22/17 06:10 Hct 43.6 % (32.4-45.2) 09/22/17 06:10 MCV 92.6 fl (80-96) 09/22/17 06:10 MCH 30.6 pg (25.7-33.7) 09/22/17 06:10 MCHC 33.0 g/dl (32.0-36.0) 09/22/17 06:10 RDW 15.8 % (11.6-15.6) H 09/22/17 06:10 Plt Count 409 K/MM3 (134-434) 09/22/17 06:10 MPV 8.7 fl (7.5-11.1) 09/22/17 06:10 Sodium 137 mmol/L (136-145) 09/22/17 06:10 Potassium 3.9 mmol/L (3.5-5.1) 09/22/17 06:10 Chloride 104 mmol/L (98-107) 09/22/17 06:10 Carbon Dioxide 29 mmol/L (21-32) 09/22/17 06:10 Anion Gap 4 (8-16) L 09/22/17 06:10 BUN 8 mg/dL (7-18) 09/22/17 06:10 Creatinine 0.6 mg/dL (0.55-1.02) 09/22/17 06:10 Creat Clearance w eGFR > 60 (>60) 09/22/17 06:10 Random Glucose 83 mg/dL (74-106) 09/22/17 06:10 Calcium 9.0 mg/dL (8.5-10.1) 09/22/17 06:10 Total Bilirubin 0.4 mg/dL (0.2-1.0) 09/22/17 06:10 AST 10 U/L (15-37) L 09/22/17 06:10 ALT 22 U/L (12-78) 09/22/17 06:10 Alkaline Phosphatase 78 U/L (45-117) 09/22/17 06:10 Total Protein 8.1 g/dl (6.4-8.2) 09/22/17 06:10 Albumin 4.0 g/dl (3.4-5.0) 09/22/17 06:10 Urine Color Straw 09/24/17 12:45 Urine Appearance Clear 09/24/17 12:45 Urine pH 7.0 (5.0-8.0) D 09/24/17 12:45 Ur Specific [place] 1.008 (1.001-1.035) 09/24/17 12:45 Urine Protein Negative (NEGATIVE) 09/24/17 12:45 Urine Glucose (UA) Negative (NEGATIVE) 09/24/17 12:45 Urine Ketones Negative (NEGATIVE) 09/24/17 12:45 Urine Blood Negative (NEGATIVE) 09/24/17 12:45 Urine Nitrite Negative (NEGATIVE) 09/24/17 12:45 Urine Bilirubin Negative (NEGATIVE) 09/24/17 12:45 Urine Urobilinogen Negative mg/dL (0.2-1.0) 09/24/17 12:45 Ur Leukocyte Esterase Trace (NEGATIVE) 09/24/17 12:45 Urine WBC (Auto) 1 /hpf (3-5) 09/24/17 12:45 Urine RBC (Auto) 1 /hpf (0-3) 09/24/17 12:45 Ur Epithelial Cells Rare /HPF (FEW) 09/24/17 12:45 Urine Bacteria Rare /hpf (NONE SEEN) 09/24/17 12:45 Urine Mucus Many 09/21/17 20:12 RPR Titer Nonreactive (NONREACTIVE) 09/22/17 06:10 Hepatitis C Antibody 0.2 s/co ratio (0.0-0.9) 09/22/17 08:30 HIV 1&2 Antibody Screen Negative 09/21/17 12:52 HIV P24 Antigen Negative 09/21/17 12:52 LAB N OTED Assessment: 09/26/17 13:18 WITHDRAWAL SX Plan: MEDICALLY SUPERVISED DETOX
[2017-09-26] MEDS: ACETAMINOPHEN 325 MG TABLET (FP) PO PRN (13:24)
[2017-09-26] MEDS: HALOPERIDOL 1 MG TABLET (FP) PO PRN (20:43)
[2017-09-26] MEDS: THIAMINE HCL 100 MG TABLET (FP) PO SCH (22:13)
[2017-09-26] MEDS: ZOLPIDEM TARTRATE 5 MG TABLET PO PRN (22:13)
[2017-09-27] MEDS: HALOPERIDOL 1 MG TABLET (FP) PO PRN ×3 (01:03→14:13)
[2017-09-27] MEDS: diphenhydrAMINE HCL 25 MG CAPSULE (FP) PO PRN (01:04)
--- NOTE | 2017-09-27 08:35 | DS ---
[facility] Detox Discharge Summary Admission Date: 09/21/17 Discharge Date: 09/27/17 - History Present History: Opioid Dependence - Physical Exam Results Vital Signs: Vital Signs Temperature 97.7 F 09/27/17 06:00 Pulse Rate 74 09/27/17 06:00 Respiratory Rate 16 09/27/17 06:00 Blood Pressure 90/53 09/27/17 06:00 O2 Sat by Pulse Oximetry (%) Pertinent Admission Physical Exam Findings: withdrawal sx Laboratory Last Values WBC 10.9 K/mm3 (4.0-10.0) H 09/22/17 06:10 RBC 4.71 M/mm3 (3.60-5.2) 09/22/17 06:10 Hgb 14.4 GM/dL (10.7-15.3) 09/22/17 06:10 Hct 43.6 % (32.4-45.2) 09/22/17 06:10 MCV 92.6 fl (80-96) 09/22/17 06:10 MCH 30.6 pg (25.7-33.7) 09/22/17 06:10 MCHC 33.0 g/dl (32.0-36.0) 09/22/17 06:10 RDW 15.8 % (11.6-15.6) H 09/22/17 06:10 Plt Count 409 K/MM3 (134-434) 09/22/17 06:10 MPV 8.7 fl (7.5-11.1) 09/22/17 06:10 Sodium 137 mmol/L (136-145) 09/22/17 06:10 Potassium 3.9 mmol/L (3.5-5.1) 09/22/17 06:10 Chloride 104 mmol/L (98-107) 09/22/17 06:10 Carbon Dioxide 29 mmol/L (21-32) 09/22/17 06:10 Anion Gap 4 (8-16) L 09/22/17 06:10 BUN 8 mg/dL (7-18) 09/22/17 06:10 Creatinine 0.6 mg/dL (0.55-1.02) 09/22/17 06:10 Creat Clearance w eGFR > 60 (>60) 09/22/17 06:10 Random Glucose 83 mg/dL (74-106) 09/22/17 06:10 Calcium 9.0 mg/dL (8.5-10.1) 09/22/17 06:10 Total Bilirubin 0.4 mg/dL (0.2-1.0) 09/22/17 06:10 AST 10 U/L (15-37) L 09/22/17 06:10 ALT 22 U/L (12-78) 09/22/17 06:10 Alkaline Phosphatase 78 U/L (45-117) 09/22/17 06:10 Total Protein 8.1 g/dl (6.4-8.2) 09/22/17 06:10 Albumin 4.0 g/dl (3.4-5.0) 09/22/17 06:10 Urine Color Straw 09/24/17 12:45 Urine Appearance Clear 09/24/17 12:45 Urine pH 7.0 (5.0-8.0) D 09/24/17 12:45 Ur Specific [place] 1.008 (1.001-1.035) 09/24/17 12:45 Urine Protein Negative (NEGATIVE) 09/24/17 12:45 Urine Glucose (UA) Negative (NEGATIVE) 09/24/17 12:45 Urine Ketones Negative (NEGATIVE) 09/24/17 12:45 Urine Blood Negative (NEGATIVE) 09/24/17 12:45 Urine Nitrite Negative (NEGATIVE) 09/24/17 12:45 Urine Bilirubin Negative (NEGATIVE) 09/24/17 12:45 Urine Urobilinogen Negative mg/dL (0.2-1.0) 09/24/17 12:45 Ur Leukocyte Esterase Trace (NEGATIVE) 09/24/17 12:45 Urine WBC (Auto) 1 /hpf (3-5) 09/24/17 12:45 Urine RBC (Auto) 1 /hpf (0-3) 09/24/17 12:45 Ur Epithelial Cells Rare /HPF (FEW) 09/24/17 12:45 Urine Bacteria Rare /hpf (NONE SEEN) 09/24/17 12:45 Urine Mucus Many 09/21/17 20:12 RPR Titer Nonreactive (NONREACTIVE) 09/22/17 06:10 Hepatitis C Antibody 0.2 s/co ratio (0.0-0.9) 09/22/17 08:30 HIV 1&2 Antibody Screen Negative 09/21/17 12:52 HIV P24 Antigen Negative 09/21/17 12:52 lab noted - Treatment Hospital Course: Detox Protocol Followed, Detoxed Safely, Responded well, Discharged Condition Good, Rehab Referral Accepted Patient has Accepted [facility] Referral [facility] - Medication Discharge Medications: Ambulatory Orders Prazosin HCl [Minipress -] 2 mg PO HS 09/21/17 Sertraline HCl [Zoloft -] 150 mg PO DAILY 09/21/17 Sulfamethoxazole/Trimethoprim [Bactrim DS -] 1 tab PO BID 09/21/17 clonazePAM [Klonopin -] 1 mg PO TID 09/21/17 Sertraline HCl [Zoloft -] 200 mg PO DAILY #30 tablet 09/26/17 - Diagnosis (1) Opioid dependence with withdrawal Current Visit: Yes Status: Acute (2) Depression with anxiety Current Visit: Yes Status: Suspected - AMA Did Patient Leave Against Medical Advice: No
[2017-09-27] MEDS: SERTRALINE HCL 50 MG TABLET (FP) PO SCH (10:38)
[2017-09-27] MEDS: PRENATAL VITAMINS W/ FOLIC ACID TABLET (FP) PO SCH (10:38)
[2017-09-27] MEDS: SULFAMETHOXAZOLE/TRIMETHOPRIM 800MG/160MG D.S. TABLET PO SCH (10:38)
[2017-09-27] MEDS: BACITRACIN 0.9 GM PACKET TP SCH (10:38)
[2017-09-27] MEDS: RANITIDINE HCL 150 MG TABLET (FP) PO SCH (10:38)
[2017-09-27] MEDS: NICOTINE 21 MG/24 HOURS TOPICAL PATCH TD SCH (10:39)
[2017-09-27] MEDS ORDERED: diphenhydrAMINE HCL 25 MG CAPSULE (FP) PO ONE ×3 (11:18→11:51)
[2017-09-27] MEDS ORDERED: diphenhydrAMINE HCL 50 MG CAPSULE PO ONE (11:30)
[2017-09-27] MEDS: CYCLOBENZAPRINE HCL 5 MG TABLET PO PRN (14:13)
[2017-09-27 15:25] VITALS: BP 115/76; PULSE 74; TEMP 98.4
== END 2017-09-27 14:50 | disposition home or self-care (01) | DRG 773 ==
LOC: YASAS 11:14 → Y6N 13:20
PROVIDERS: ADMIT Internal Medicine; ATTEND Internal Medicine
PROC: HZ2ZZZZ Detoxification Services for Substance Abuse Treatment (ICD-10-PCS; principal; 2017-09-21)
DX: F11.23 Opioid dependence with withdrawal (principal); F13.230 Sedative, hypnotic or anxiolytic dependence with withdrawal, uncomplicated; F17.210 Nicotine dependence, cigarettes, uncomplicated; F41.8 Other specified anxiety disorders; F19.24 Other psychoactive substance dependence with psychoactive substance-induced mood disorder; R45.1 Restlessness and agitation; G47.00 Insomnia, unspecified; M06.9 Rheumatoid arthritis, unspecified
CPT/HCPCS: 36415; 80053; 81003; 81015; 85027; 86593; 86803; 87086; 87389; 93005; 93010